=== PATIENT | female | born 1965 | race Two or more races ===

== ENCOUNTER 2025-06-05 17:41 | Emergency (ER) | payer MEDICAID ==
[~2025-06-05] VITALS: Ht 160 cm; Wt 73.5 kg
[2025-06-05] MEDS ORDERED: MORPHINE SULFATE INJ 4 MG/ML DISP.SYRIN ONE (18:20)
[2025-06-05] MEDS ORDERED: ONDANSETRON HCL/PF 4 MG/2 ML VIAL ONE (18:20)
[2025-06-05] MEDS ORDERED: PANTOPRAZOLE 40 MG VIAL ONE (18:20)
[2025-06-05] MEDS: IV NS 0.9% 1,000 ML BAG IV ONE (18:32)
[2025-06-05] MEDS: ONDANSETRON HCL/PF 4 MG/2 ML VIAL IVP ONE (18:32)
[2025-06-05] MEDS: PANTOPRAZOLE 40 MG VIAL IV ONE (18:32)
[2025-06-05] MEDS: MORPHINE SULFATE INJ 2 MG/ML DISP.SYRIN IV ONE (18:32)
[2025-06-05 18:33] LABS: PLATELET COUNT (AUTO) 205 K/uL (150-450); RED BLOOD CELL COUNT(AUTO) 5.32 MIL/uL (4.0-5.2); RED CELL DISTRIBUTION WIDTH 13.9 % (11.5-15.0); WHITE BLOOD COUNT (AUTO) 10.4 K/uL (4.3-11.0)
[2025-06-05 18:40] LABS: CALCIUM, SERUM 9.1 mg/dL (8.5-10.1); CREATININE 0.8 mg/dL (0.6-1.3); SODIUM SERUM 135 mmol/L (136-145); UREA NITROGEN, BLOOD 18 mg/dL (7-18)
[2025-06-05 18:46] LABS: ASPARTATE AMINOTRANSFERASE 15 U/L (15-37); TOTAL PROTEIN, SERUM 7.5 g/dL (6.4-8.2)
[2025-06-05] MEDS ORDERED: HYDR-3972 PO (20:52)
[2025-06-05] MEDS ORDERED: ONDA4TAB5 PO (20:52)
[2025-06-05 20:57] LABS: APPEARANCE,URINE CLEAR (CLEAR); BLOOD, URINE 1+ Ery/uL (NEGATIVE); LEUKOCYTE ESTERASE ,URINE NEGATIVE (NEGATIVE); NITRITE, URINE NEGATIVE (NEGATIVE); UGLUCOSE NEGATIVE (NEGATIVE)
[2025-06-05 21:08] LABS: ADD URINE CULTURE NO; SQUAMOUS EPITHELIAL CELL,UR 0-2 /HPF (None Seen)
[2025-06-05 21:23] VITALS: BP 145/89; TEMP 98; O2SAT 98
== END 2025-06-05 21:25 | disposition home or self-care (01) ==
LOC: ER 17:47
DX: K85.90 Acute pancreatitis without necrosis or infection, unspecified (principal); K21.9 Gastro-esophageal reflux disease without esophagitis; C56.9 Malignant neoplasm of unspecified ovary; R00.1 Bradycardia, unspecified; R07.9 Chest pain, unspecified; Z87.11 Personal history of peptic ulcer disease; Z90.721 Acquired absence of ovaries, unilateral
CPT/HCPCS: 99285; 74176; 96374; 76700; 96375; 71045; 96361; 93005; 85025; 80048; 83690; 80076; 81001; 36415; J2270; J2405; J2470